=== PATIENT | male | born 1965 | race Caucasian/White ===

== ENCOUNTER 2020-03-31 09:09 | Inpatient (IN) | payer OTHER ==
[~2020-03-31] VITALS: Ht 175.3 cm; Wt 60.3 kg
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
[2020-03-31] MEDS ORDERED: IBUPROFEN 400 MG TABLET ONE ×2 (09:42→09:47)
[2020-03-31] MEDS ORDERED: IBUPROFEN 400 MG TABLET PO ONE (10:00)
--- NOTE | 2020-03-31 10:20 | NUR ---
[facility]ORA OFFICERS [employer] MARCEL [id number] AND MILLY [id number] AT BEDSIDE FOR INVESTIGATION
[2020-03-31] MEDS ORDERED: PROPOFOL 100 ML ONE (10:24)
--- NOTE | 2020-03-31 10:28 | NUR ---
MD, RT, AND RN AT BEDSIDE FOR CHEST TUBE INSERTION
[2020-03-31] MEDS ORDERED: PROPOFOL 200 MG/20 ML VIAL IV ONE ×2 (10:30→14:30)
[2020-03-31] MEDS ORDERED: IV NS 0.9% 500 ML BAG IV ONE (11:00)
[2020-03-31 11:42] LABS: BASOPHILS # (AUTO) 0.1 /CMM (0.0-0.2); BASOPHILS % (AUTO) 0.6 % (0.0-2.0); EOSINOPHILS % (AUTO) 0.3 % (0.0-6.0); HEMATOCRIT 42 % (39-51); HEMOGLOBIN 13.6 g/dL (13.5-17.5); LYMPHOCYTES % (AUTO) 9.9 % (20.0-44.0); MEAN CORPUSCULAR HGB CONC 32 g/dl (31.0-36.0); MEAN CORPUSCULAR VOLUME 91 fL (80-96); MONOCYTES # (AUTO) 0.8 /CMM (0.1-1.30); MONOCYTES % (AUTO) 7.9 % (2.0-12.0); NEUTROPHILS # (AUTO) 8.2 /CMM (1.8-8.9); NEUTROPHILS % (AUTO) 81.3 % (43.0-81.0); PLATELET COUNT (AUTO) 203 /CMM (150-450); RED BLOOD CELL COUNT(AUTO) 4.62 MIL/uL (4.5-6.0); WHITE BLOOD COUNT (AUTO) 10.1 K/uL (4.3-11.0)
--- NOTE | 2020-03-31 11:49 | NUR ---
Mary Cook gave us verbal auth to admit patient here.
--- NOTE | 2020-03-31 11:55 | NUR ---
CALLED NURSING SUP FOR ICU BED.
[2020-03-31] MEDS ORDERED: MORPHINE SULFATE INJ 2 MG/ML DISP.SYRIN IV PRN (12:30)
[2020-03-31] MEDS ORDERED: HYDROCODONE/APAP 5/325MG TABLET PO PRN (12:30)
[2020-03-31] MEDS ORDERED: Z GUARD REMEDY 2 OZ OINT TP PRN (12:30)
[2020-03-31] MEDS ORDERED: ACETAMINOPHEN 325 MG TABLET PO PRN (12:30)
[2020-03-31] MEDS ORDERED: ONDANSETRON HCL/PF 4 MG/2 ML VIAL IVP PRN (12:30)
[2020-03-31] MEDS ORDERED: MAG HYDROX/AL HYDROX/SIMETH 30 ML UDC PO PRN (12:30)
[2020-03-31] MEDS ORDERED: MAGNESIUM HYDROXIDE 30 ML UDC PO PRN (12:30)
--- NOTE | 2020-03-31 13:05 | NUR ---
out for ct
[2020-03-31 13:16] LABS: ALBUMIN 3.2 g/dL (3.4-5.0); BILIRUBIN,DIRECT 0.1 mg/dL (0.0-0.2); BILIRUBIN,TOTAL 0.4 mg/dL (0.2-1.0); CALCIUM, SERUM 8.6 mg/dL (8.5-10.1); TOTAL PROTEIN, SERUM 7.2 g/dL (6.4-8.2)
--- NOTE | 2020-03-31 13:57 | NUR ---
PATIENT WAS TRYING TO STAND UP TO GO TO RESTROOM, PULLED OUT CHEST TUBE ACCIDENTALLY. MAD DR YOUSSEF AWARE
--- NOTE | 2020-03-31 14:00 | NUR ---
DR YOUSSEF, AND RN AT BEDSIDE TO RE-INSERT CHEST TUBE.
[2020-03-31] MEDS ORDERED: MORPHINE SULFATE INJ 2 MG/ML DISP.SYRIN ONE (15:23)
--- NOTE | 2020-03-31 15:45 | NUR ---
PICKED UP BY SACK DEPARTMENT SUPERVISOR FOR CT SCAN
--- NOTE | 2020-03-31 17:18 | NUR ---
room 110 icu overflow
--- NOTE | 2020-03-31 18:46 | NUR ---
ATTEMPTED TO GIVE REPORT. PER MS SOON, NO NURSE YET. DIRECTOR MEETINGS NURSE WILL TAKE THE REPORT.
--- NOTE | 2020-03-31 19:51 | NUR ---
REPORT GIVEN TO RIKA HONG
[2020-03-31 20:05] VITALS: BP 128/99
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
--- NOTE | 2020-03-31 21:30 | NUR ---
0 SLEEPING AT THIS TIME. NO SIGNS DISTRESS. LEFT CHEST TUBE INTACT WITH NO SIGN OF LEAK NOTED. PATIENT CONT TO DENY SOB. NO NEW DRAINAGE NOTED FROM CHEST TUBE. WILL CONT. TO MONITOR.
[2020-04-01] VITALS: BP 126/87
--- NOTE | 2020-04-01 01:00 | NUR ---
0100 AWAKE REQUESTING FOR SOMETHING TO EAT. CONT. TO DENY PAIN WHEN ASKED. NO C/O SOB OR DIFFICULTY BREATHING. LEFT CHEST TUBE INTACT CONNECTED TO WALL SUCTION. NO SIGNS OF LEAK NOTED. SCANT DRAINAGE NOTED. WILL CONT. TO MONITOR
[2020-04-01 04:00] VITALS: BP 132/91
--- NOTE | 2020-04-01 04:30 | NUR ---
9544 NO SIGNS OF RESPIRATORY DISTRESS NOTED. LEFT CHEST TUBE INTACT CONNECTED TO WALL SUCTION. NO DRAINAGE NOTED. PATIENT CONT TO DENY PAIN. KEPT COMFORTABLE. CALL LIGHT WITHIN REACH AND INSTRUCTED TO CALL FOR ASSIST.
--- NOTE | 2020-04-01 07:30 | NUR ---
RN NOTE PT RESTING COMFORTABLY IN BED ON RA WITH NO SIGNS OF RESP DISTRESS OR SOB, BREATHING EVEN AND UNLABORED. PT IS A/Ox4, HAS A LEFT UPPER CHEST TUBE IN PLACE AND REINFORCED, NO SIGNS OF LEAKAGE, AND MINIMAL DRAINAGE NOTED. PT HAS RAC #18, INTACT, FLUSHED, PATENT AND SL; NO SIGNS OF INFILTRATION OR INFECTION. PT DENIES PAIN AT THIS TIME. PT HAS APPROX $128 IN WALLET ON HIS PERSON PER PT. ALL SAFETY PRECAUTIONS IN PLACE, WILL CONTINUE TO MONITOR
[2020-04-01 07:39] LABS: BASOPHILS % (AUTO) 0.5 % (0.0-2.0); EOSINOPHILS % (AUTO) 0.2 % (0.0-6.0); HEMATOCRIT 43 % (39-51); HEMOGLOBIN 13.8 g/dL (13.5-17.5); LYMPHOCYTES % (AUTO) 10.5 % (20.0-44.0); MEAN CORPUSCULAR HGB CONC 33 g/dl (31.0-36.0); MEAN CORPUSCULAR VOLUME 90 fL (80-96); MONOCYTES # (AUTO) 0.9 /CMM (0.1-1.30); MONOCYTES % (AUTO) 8.7 % (2.0-12.0); NEUTROPHILS # (AUTO) 7.9 /CMM (1.8-8.9); NEUTROPHILS % (AUTO) 80.1 % (43.0-81.0); PLATELET COUNT (AUTO) 216 /CMM (150-450); RED BLOOD CELL COUNT(AUTO) 4.73 MIL/uL (4.5-6.0); WHITE BLOOD COUNT (AUTO) 9.8 K/uL (4.3-11.0)
[2020-04-01 08:00] VITALS: BP 125/87
[2020-04-01 08:08] LABS: CALCIUM, SERUM 8.6 mg/dL (8.5-10.1); CREATININE 0.9 mg/dL (0.6-1.3); MAGNESIUM 2.2 mg/dL (1.8-2.4); PHOSPHORUS 3.2 mg/dL (2.5-4.9); POTASSIUM 4.6 mmol/L (3.5-5.1)
--- NOTE | 2020-04-01 08:10 | NUR ---
0810 report given to inocencio Renee for transfer of care with questions answered.
[2020-04-01 12:00] VITALS: BP 115/77
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
--- NOTE | 2020-04-01 13:00 | NUR ---
RN NOTE PT RESTING IN BED COMFORTABLY WITH NO SIGNS OF RESP DISTRESS, BREATHING EVEN AND UNLABORED. PT DENIES PAIN. CHEST TUBE INTACT
[2020-04-01 16:00] VITALS: BP 115/77
--- NOTE | 2020-04-01 19:00 | NUR ---
RN CLOSING NOTE PT ION STABLE CONDITION. NO SIGNS OF RESP DISTRESS OR SOB, BREATHING EVEN AND UNLABORED. LEFT UPPER CHEST TUBE IN PLACE WITH NO SIGNS OF LEAKAGE, AND NO DRAINAGE NOTED DURING THIS SHIFT. ALL SAFETY PRECAUTIONS IN PLACE, WILL ENDORSE GONZALEZ TO ONCOMING NURSE
--- NOTE | 2020-04-01 19:10 | NUR ---
RN OPENING NOTE RECEIVED PATIENT IN BED RESTING ALERT ORIENTED X4 VERBALLY RESPONSIVE ON ROOM AIR o2:96% ON TELE MONITORING,IV SITE IS ON RIGHT AC INTACT PATENT,LEFT SIDE CHEST WELL WITH CHEST TUBE NO DRAINING NOTED,SAFETY MEASURE IMPLEMENT,KEEP CALL LIGHT WITHIN REACH,BED IS IN LOW POSITION AND LOCKED CONTINUE TO MONITOR.
[2020-04-01 19:37] VITALS: BP 123/90
--- NOTE | 2020-04-01 22:40 | NUR ---
RN OPENING NOTES RECEIVED PATIENT IN BED. ISOLATION PRECAUTIONS IN PLACE FOR R/O COVID RESULT. PATIENT A/O X4. NO RESP DISTRESS OR SOB NOTED. PT IS ON ROOM AIR TOLERATING WELL SATURATING WELL AT 95% PT HAS CHEST TUBE ON LEFT SIDE, NO DRAINAGE NOTED, CONNECTED TO SUCTION. IV SITE FLUSHED ASEPTICALLY. TELE MONITORING IN PLACE HEART RATE 88, NSR. PATIENT SAFETY MEASURES IN PLACE. HOB ELEVATED. SIDE RAILS UP X2. BED LOCKED IN LOWEST POSITION WITH BED ALARM ON. CALL LIGHT WITHIN REACH. WILL CONTINUE TO MONITOR.
--- NOTE | 2020-04-01 22:45 | NUR ---
RN NOTE PATIENT REMAINS IN ALERT ORIENTED X4 VERBALLY RESPONSIVE ON ROOM AIR O2:96% ENDORSE TO CAMEL FOR CONTINUATION OF CARE
[2020-04-02] VITALS: BP 127/95
[2020-04-02 04:00] VITALS: BP 118/80
--- NOTE | 2020-04-02 06:50 | NUR ---
RN CLOSING NOTED NO CHANGES THROUGHOUT THE NIGHT. PT RESTED WELL. PT STILL ON ROOM AIR. NO DISTRESS NOTED. NO SOB. PT AT THIS TIME DENIES PAIN. IV SITE FLUSHED SALINE LOCKED. NEEDS ATTENDED. SAFETY MEASURES IN PLACE. SIDE RAILS UP X2. BED LOCKED IN LOWEST POSITION WITH BED ALARM ON. CALL LIGHT WITHIN REACH. WILL ENDORSE TO AM NURSE FOR CONTINUATION OF CARE.
--- NOTE | 2020-04-02 07:30 | NUR ---
PIN DRAFTING MACHINE OPERATOR NOTES PT IN BED, AWAKE, ALERT AND ORIENTED, DENIES PAIN, NOT IN DISTRESS, CALL LIGHT WITHIN REACH, TOLERATES ROOM AIR, NEEDS ATTENDED.
[2020-04-02 08:00] VITALS: BP 114/79
--- NOTE | 2020-04-02 10:44 | NUR ---
VIRTUALIZATION CONSULTANT NOTES PT SEEN BY DR. FARRAH MD REMOVED PT'S CHEST TUBE, PT TOLERATED PROCEDURE WELL.
--- NOTE | 2020-04-02 12:16 | NUR ---
CULINARY ARTS INSTRUCTOR NOTES PT REFUSED SKIN ASSESSMENT ON DISCHARGE, STATED HE WOULD LIKE TO BE DISCHARGED SOON POSSIBLE.
--- NOTE | 2020-04-02 12:16 | NUR ---
MANAGER REVENUE NOTES PT AWAKE, ALERT AND ORIENTED, RESPIRATIONS NORMAL, NO COMPLAINT OF PAIN, SEEN BY DR. MONTE, DISCHARGE ORDER GIVEN, DISCHARGE AND MEDICATION INSTRUCTIONS PROVIDED TO PT, VERBALIZED UNDERSTANDING, PT ABLE TO WALK INSIDE HIS ROOM WITH STEADY GAIT, BELONGINGS ACCOUNTED FOR, PT SIGNED THE HOMELESS WAIVER FORM, ASSISTED PT TO HOSPITAL LOBBY, LEFT IN STABLE CONDITION.
== END 2020-04-02 14:15 | disposition home or self-care (01) | DRG 135 ==
LOC: ER 09:11 → EDBD 09:11 → TRANSITION 14:54 → ICUOV 17:31 → TELE1 21:14
PROVIDERS: ADMIT Internal Medicine; ATTEND Internal Medicine
PROC: 0W9B30Z Drainage of Left Pleural Cavity with Drainage Device, Percutaneous Approach (ICD-10-PCS; principal; 2020-03-31)
DX: S27.0XXA Traumatic pneumothorax, initial encounter (principal); Y92.89 Other specified places as the place of occurrence of the external cause; E43 Unspecified severe protein-calorie malnutrition; Z59.0 Homelessness; S22.32XA Fracture of one rib, left side, initial encounter for closed fracture; Z68.1 Body mass index [BMI] 19.9 or less, adult; Y08.02XA Assault by strike by baseball bat, initial encounter; Z20.828 Contact with and (suspected) exposure to other viral communicable diseases; S09.90XA Unspecified injury of head, initial encounter
CPT/HCPCS: 32551; 36415; 70450-TC; 71045-TC; 71111-TC; 80048-TC; 80076-TC; 83690-TC; 83735-TC; 84100-TC; 85025-TC; 85730-TC; 87081-TC; A6253; G0378; J2270; J2405; J3490; U0003

== ENCOUNTER 2020-04-10 15:39 | Emergency (ER) | payer OTHER ==
[~2020-04-10] VITALS: Ht 170.2 cm; Wt 63.5 kg
[2020-04-10 15:51] VITALS: BP 109/48
== END 2020-04-10 16:54 | disposition home or self-care (01) ==
LOC: ER 15:46
DX: L03.011 Cellulitis of right finger (principal); Z59.0 Homelessness